=== PATIENT | male | born 1990 | race African-American/Black ===

== ENCOUNTER 2019-12-19 22:35 | Inpatient (IN) | payer MEDICAID ==
[~2019-12-19] VITALS: Ht 170.2 cm; Wt 63.5 kg
[2019-12-19 22:44] VITALS: BP 118/78
--- NOTE | 2019-12-19 22:44 | NUR ---
ED Nurse Note: ERMD at bedside. Pt LORE CO foreign object in rectm x 2 days and unable to remove object. Pt cannot state exactly what the object is. Pt states he recently did methamphetamines. VSS with elevated HR 134. ERMD aware. Pt aao x 4, steady gait. Pt states pain 9/10.
--- NOTE | 2019-12-19 22:46 | Emergency Room Report ---
History of Present Illness General Chief Complaint: Foreign Body Source: Patient, EMS Present Illness HPI Patient is a 29-year-old male presents after increased rectal discomfort. Patient states that he lost a object in his rectum. He states is been present for the past 2 days. He denies any vomiting. Reports having increased pain with Movement.Patient denies any fever. he denies any abdominal distention. He reports having some flatus. Denies any prior past medical history. Patient was brought in by EMS. Increased difficulty with ambulation due to discomfort. Object was described as an ornament. Allergies: Coded Allergies: SULFA (SULFONAMIDE ANTIBIOTICS) (Verified Allergy, Unknown, 12/20/19) COVID-19 Screening Contact w/high risk pt: No Recent Travel to affected area: No Experienced COVID-19 symptoms?: No Patient History Past Medical History: none Reviewed Nursing Documentation: PMH: Agreed; PSxH: Agreed Nursing Documentation-PMH History Of Psychiatric Problem: Yes Review of Systems All Other Systems: negative except mentioned in HPI Physical Exam Vital Signs Date Time Temp Pulse Resp B/P (MAP) Pulse Ox O2 Delivery O2 Flow Rate FiO2 12/19/19 22:38 98.1 134 18 118/78 (91) 96 Room Air Sp02 EP Interpretation: reviewed, normal General Appearance: normal inspection, well appearing, no apparent distress, alert, GCS 15 Head: atraumatic ENT: normal ENT inspection, hearing grossly normal, normal voice Neck: normal inspection, full range of motion, supple, no bony tend Respiratory: normal inspection, lungs clear, normal breath sounds, no respiratory distress, no retraction, no wheezing Cardiovascular #1: regular rate, rhythm, no edema Gastrointestinal: normal inspection, normal bowel sounds, non tender, soft, no guarding, no hernia Genitourinary: no CVA tenderness Musculoskeletal: normal inspection, back normal, normal range of motion Neurologic: alert, motor strength/tone normal, 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 Differential diagnosis include was not limited to foreign body, intestinal perforation, ischemia among others. Because of complexity of patient's case laboratory tests and imaging studies were ordered.KUB showed some radiopaque foreign body near the pubic ramus. CT was subsequently ordered which showed foreign body within the rectum. Patient was unable to tolerate exam at this time. May require exam and removal under anesthesia. Patient was noted to have foreign body for approximately [address] Nassar was contacted for surgical consult. Dr. Michael Villasenor was contacted for inpatient observation. Labs Test 12/19/19 23:30 White Blood Count 7.6 K/UL (4.8-10.8) Red Blood Count 5.55 M/UL (4.70-6.10) Hemoglobin 15.7 G/DL (14.2-18.0) Hematocrit 44.1 % (42.0-52.0) Mean Corpuscular Volume 79 FL (80-99) Mean Corpuscular Hemoglobin 28.3 PG (27.0-31.0) Mean Corpuscular Hemoglobin Concent 35.6 G/DL (32.0-36.0) Red Cell Distribution Width 11.5 % (11.6-14.8) Platelet Count 226 K/UL (150-450) Mean Platelet Volume 6.0 FL (6.5-10.1) Neutrophils (%) (Auto) 62.1 % (45.0-75.0) Lymphocytes (%) (Auto) 27.6 % (20.0-45.0) Monocytes (%) (Auto) 7.6 % (1.0-10.0) Eosinophils (%) (Auto) 1.7 % (0.0-3.0) Basophils (%) (Auto) 1.1 % (0.0-2.0) Prothrombin Time 10.4 SEC (9.30-11.50) Prothromb Time International Ratio 1.0 (0.9-1.1) Activated Partial Thromboplast Time 27 SEC (23-33) Sodium Level 141 MMOL/L (136-145) Potassium Level 4.0 MMOL/L (3.5-5.1) Chloride Level 101 MMOL/L (98-107) Carbon Dioxide Level 26 MMOL/L (21-32) Anion Gap 14 mmol/L (5-15) Blood Urea Nitrogen 14 mg/dL (7-18) Creatinine 1.1 MG/DL (0.55-1.30) Estimat Glomerular Filtration Rate > 60 mL/min (>60) Glucose Level 123 MG/DL (74-106) Calcium Level 9.5 MG/DL (8.5-10.1) Total Bilirubin 0.3 MG/DL (0.2-1.0) Aspartate Amino Transf (AST/SGOT) 25 U/L (15-37) Alanine Aminotransferase (ALT/SGPT) 25 U/L (12-78) Alkaline Phosphatase 100 U/L (46-116) Total Protein 8.3 G/DL (6.4-8.2) Albumin 4.2 G/DL (3.4-5.0) Globulin 4.1 g/dL Albumin/Globulin Ratio 1.0 (1.0-2.7) Last Vital Signs Date Time Temp Pulse Resp B/P (MAP) Pulse Ox O2 Delivery O2 Flow Rate FiO2 12/19/19 22:38 98.1 134 18 118/78 (91) 96 Room Air Status: improved Disposition: PLACE IN OBSERVATION Condition: Stable Jimmy Arriaga MD Dec 19, 2019 22:46
--- NOTE | 2019-12-19 22:48 | NUR ---
ED Nurse Note: xray ta bedside
[2019-12-19] MEDS ORDERED: Lidocaine HCl 2% Jelly 6ml Tube TOPIC ONE ×2 (23:04→23:15)
[2019-12-19] MEDS ORDERED: Omnipaque-300 100ml vial INJ PRN (23:30)
--- NOTE | 2019-12-19 23:32 | NUR ---
ED Nurse Note: all blood work drawn and sent to lab.
[2019-12-19 23:40] LABS: BASOPHILS % (AUTO) 1.1 % (0.0-2.0); EOSINOPHILS % (AUTO) 1.7 % (0.0-3.0); HEMATOCRIT 44.1 % (42.0-52.0); HEMOGLOBIN 15.7 G/DL (14.2-18.0); LYMPHOCYTES % (AUTO) 27.6 % (20.0-45.0); MEAN CORPUSCULAR VOLUME 79 FL (80-99); MONOCYTES % (AUTO) 7.6 % (1.0-10.0); NEUTROPHILS % (AUTO) 62.1 % (45.0-75.0); PLATELET COUNT 226 K/UL (150-450); RED BLOOD COUNT 5.55 M/UL (4.70-6.10); RED CELL DISTRIBUTION WIDTH 11.5 % (11.6-14.8); WHITE BLOOD COUNT 7.6 K/UL (4.8-10.8)
[2019-12-19 23:50] LABS: ANION GAP 14 mmol/L (5-15); BLOOD UREA NITROGEN 14 mg/dL (7-18); CALCIUM 9.5 MG/DL (8.5-10.1); CARBON DIOXIDE 26 MMOL/L (21-32); CHLORIDE 101 MMOL/L (98-107); CREATININE 1.1 MG/DL (0.55-1.30); SODIUM 141 MMOL/L (136-145)
[2019-12-19 23:55] LABS: ALANINE AMINOTRANSFERASE 25 U/L (12-78); ALBUMIN 4.2 G/DL (3.4-5.0); ALKALINE PHOSPHATASE 100 U/L (46-116); ASPARTATE AMINO TRANSFERASE 25 U/L (15-37); BILIRUBIN,TOTAL 0.3 MG/DL (0.2-1.0)
--- NOTE | 2019-12-19 23:55 | NUR ---
ED Nurse Note: Pt taken to CT in stable condition. VSS, aao x 4. no ss of distress noted.
[2019-12-20] VITALS (22 sets, daily range): BP systolic 111–166; BP diastolic 44–82
--- NOTE | 2019-12-20 00:39 | NUR ---
ED Nurse Note: pt returned from CT in stable condition, no ss of distress noted. no adverse reactions noted. pt resting in room
--- NOTE | 2019-12-20 01:00 | Diagnostic Imaging Report ---
INDICATION: Abdominal pain TECHNIQUE: Continuous helical transaxial imaging of the abdomen and pelvis was obtained from the lung bases to the pubic symphysis during intravenous contrast administration. Coronal 2-D reformats were also obtained. Study obtained in a Siemens sensation [address] Automatic Exposure Control was utilized. Total Dose length Product (DLP): 217.[address] Dose Index Volume (CTDIvol): 4 mGy COMPARISON: None FINDINGS: Lungs: Not fully visualized.. Liver: Not fully visualized without much of the upper part of the liver beyond the [id number] of this examination. Gallbladder/biliary system: No gallstones are identified. There is no evidence of intrahepatic or extrahepatic biliary ductal dilatation. Spleen: Incompletely visualized. Grossly unremarkable. Pancreas: Unremarkable Kidneys/Bladder: No hydronephrosis identified. Both kidneys enhance symmetrically. The urinary bladder is unremarkable.. Adrenal glands: Unremarkable Aorta/IVC: Unremarkable Bowel: The appendix is seen. Appendix appears normal. There is no small bowel dilatation. There is a rectal foreign body present with a moderate amount of fecal retention in the rectosigmoid colon. There is no free air. Peritoneum: There is no free fluid. Bones: Unremarkable IMPRESSION: Rectal foreign body noted. Moderate fecal retention. No free air. The CT scanner at [facility] is accredited by the [employer] and the scans are performed using dose optimization techniques as appropriate to a performed exam including Automatic Exposure control.
--- NOTE | 2019-12-20 01:07 | NUR ---
ED Nurse Note: ERMD at bedside
[2019-12-20] MEDS ORDERED: Morphine Sulfate 4mg/ml Inj (IV USE ONLY) IVP ONE (01:15)
[2019-12-20] MEDS ORDERED: D5 1/2NS 1,000 ML IV SCH (01:15)
--- NOTE | 2019-12-20 01:15 | NUR ---
ED Nurse Note: IV fluids running. Pt tolerating well. no ss of distress noted. no adverse reactions noted.
--- NOTE | 2019-12-20 01:49 | NUR ---
NURSE NOTES: Received telephone report from MART Millard (ED).
--- NOTE | 2019-12-20 01:49 | NUR ---
ED Nurse Note: Report given to MART Mckinney.
--- NOTE | 2019-12-20 01:55 | NUR ---
ER DISCHARGE NOTE: Patient is cleared to be discharged to [facility] floor per ERMD, pt is aox4, on room air, with stable vital signs. pt was given dc instructions, pt was able to verbalize understanding. pt is able to ambulate with steady gait. pt took all belongings. Report given to MART Mckinney.
--- NOTE | 2019-12-20 02:00 | NUR ---
NURSE NOTES: Received pt from MART Zapata via [facility]. Pt able to ambulate. Pt a&ox4, in room air. No s/s of acute distress, c/o 7/10 pain. No skin issues. IV site intact & S/L'd. Oriented to hospital facility. Pt belongings signed & accounted for. All questions answered. Will call Dr. Villasenor for admission orders. Plan of care discussed.
--- NOTE | 2019-12-20 02:47 | NUR ---
NURSE NOTES: MRSA & VRE/CRE swabs collected. Sent down to lab.
[2019-12-20] MEDS ORDERED: Morphine Sulfate 2mg/ml Inj(IV/IM USE ONLY) IVP PRN (06:45)
[2019-12-20] MEDS: Morphine Sulfate 4mg/ml Inj (IV USE ONLY) IVP PRN ×2 (06:57→11:09)
--- NOTE | 2019-12-20 07:06 | NUR ---
HAND-OFF: Report given to MART Gill. Pt in stable condition. Pt given Morphine 4mg IVP for pain.
--- NOTE | 2019-12-20 07:34 | NUR ---
NURSE NOTES: PT AXOX4, CALM, RESTING IN BED. PT STATES PAIN IN RECTUM 6-7/10 AT THIS TIME, WORSE WITH MOVEMENT. PT STATES HE DOES NOT KNOW WHAT IS INSIDE AND STATES "PLEASE STOP ASKING ME WHAT'S INSIDE. I DON'T KNOW." IN NO APPARENT DISTRESS AT THIS TIME. VSS. PT EDUCATED TO USE CALL LIGHT FOR ANY ASSISTANCE. CALL LIGHT WITHIN REACH. BED IN LOWEST POSITION WITH BEDSIDE RAILS X2 RAISED. WILL CONTINUE TO MONITOR.
--- NOTE | 2019-12-20 08:07 | NUR ---
NURSE NOTES: PT EDUCATED ON SCDs, AND PT VERBALIZED UNDERSTANDING. RN APPLIED SCDs ORDERED.
--- NOTE | 2019-12-20 11:01 | Pre-Procedure Note/Attestation ---
Pre-Procedure Note/Attestation Complete Prior to Procedure Procedure Narrative: examination under anesthesia, removal of rectal foreign body, possible exploratory laparotomy, possible bowel resection Indications for Procedure Pre-Operative Diagnosis: rectal foreign body Attestation I attest that I discussed the nature of the procedure; its benefits; risks and complications; and alternatives (and the risks and benefits of such alternatives ), prior to the procedure, with the patient (or the patient's legal floor representative). I attest that, if there was a reasonable possibility of needing a blood transfusion, the patient (or the patient's legal floor representative) was given the [facility] standardized written summary, pursuant to the [place] Blood Safety Act ([place] Health and Safety Code # 1645, as amended). I attest that I re-evaluated the patient just prior to the surgery and that there has been no change in the patient's H&P, except as documented below: Ab Nassar Dec 20, 2019 11:01
--- NOTE | 2019-12-20 11:15 | Consultation ---
History of Present Illness General Date patient seen: Dec 20, 2019 Reason for Hospitalization: Foreign Body Present Illness HPI Patient is a 29-year-old male presents after increased rectal discomfort. Patient states that he lost a object in his rectum. He states is been present for the past 2 days. He denies any vomiting. Reports having increased pain with Movement.Patient denies any fever. he denies any abdominal distention. He reports having some flatus. Denies any prior past medical history. Patient was brought in by EMS. Increased difficulty with ambulation due to discomfort. Object was described as an ornament. surgery called to evaluate. patient seen, chart reviewed, patient examined. no abd pain. rectal pain continues. believed he would pass object but still no after 3 days now Allergies: Coded Allergies: SULFA (SULFONAMIDE ANTIBIOTICS) (Verified Allergy, Unknown, 12/20/19) COVID-19 Screening Contact w/high risk pt: No Recent Travel to affected area: No Experienced COVID-19 symptoms?: No Patient History History Provided By: Patient Healthcare decision maker Resuscitation status Full Code Advanced Directive on File Past Medical/Surgical History Past Medical/Surgical History: (1) Rectal foreign body Review of Systems Review of Symptoms General ROS: no weight loss or fever Psychological ROS: no depression or mood changes, no memory loss Ophthalmic ROS: no visual changes or eye irritation ENT ROS: no nasal congestion, hearing loss, dizziness Allergy and Immunology ROS: no allergic symptoms or urticaria Hematological and Lymphatic ROS: no swollen glands, unusual bleeding or bruising Endocrine ROS: no polyuria, polydipsia, weight changes, temperature intolerance Respiratory ROS: no cough, shortness of breath, or wheezing Cardiovascular ROS: no chest pain or dyspnea on exertion Gastrointestinal ROS: denies abdominal pain, bright red blood in stool. Musculoskeletal ROS: no myalgias or arthralgias Neurological ROS: no TIA or stroke symptoms Dermatological ROS: no new or changing skin lesions, rashes or pruritis Physical Exam Physical Exam General appearance: alert, cooperative, no distress, appears stated age Head: Normocephalic, without obvious abnormality, atraumatic Eyes: conjunctivae/corneas clear. PERRL, EOM's intact. Fundi benign Throat: Lips, mucosa, and tongue normal. Teeth and gums normal Neck: supple, symmetrical, trachea midline, no adenopathy, thyroid: not enlarged, symmetric, no tenderness/mass/nodules, no carotid bruit and no JVD Lungs: clear to auscultation bilaterally Heart: regular rate and rhythm, S1, S2 normal, no murmur, click, rub or gallop Abdomen: soft, non-tender. Bowel sounds normal. No masses, no organomegaly Extremities: extremities normal, atraumatic, no cyanosis or edema Pulses: 2+ and symmetric Skin: Skin color, texture, turgor normal. No rashes or lesions Neurologic: Grossly normal rectal deferred for OR given pain Last 24 Hour Vital Signs Date Time Temp Pulse Resp B/P (MAP) Pulse Ox O2 Delivery O2 Flow Rate FiO2 12/20/19 08:44 Room Air 12/20/19 07:31 97.9 80 16 143/82 (102) 98 12/20/19 04:00 97.4 71 16 124/75 (91) 99 12/20/19 02:31 Room Air 12/20/19 02:00 98.0 92 16 136/66 (89) 98 12/20/19 01:55 98.1 92 16 132/76 96 Room Air 12/20/19 01:45 98.1 12/20/19 01:42 98.1 92 16 132/76 96 Room Air 12/20/19 00:47 98.1 116 18 120/75 96 Room Air 12/19/19 22:44 98.1 134 18 118/78 96 Room Air 12/19/19 22:38 98.1 134 18 118/78 (91) 96 Room Air Intake and Output 12/19/19 12/20/19 19:00 07:00 Intake Total 0 ml Balance 0 ml Intake Oral 0 ml # Voids 1 Laboratory Tests Test 12/19/19 23:30 White Blood Count 7.6 K/UL (4.8-10.8) Red Blood Count 5.55 M/UL (4.70-6.10) Hemoglobin 15.7 G/DL (14.2-18.0) Hematocrit 44.1 % (42.0-52.0) Mean Corpuscular Volume 79 FL (80-99) L Mean Corpuscular Hemoglobin 28.3 PG (27.0-31.0) Mean Corpuscular Hemoglobin Concent 35.6 G/DL (32.0-36.0) Red Cell Distribution Width 11.5 % (11.6-14.8) L Platelet Count 226 K/UL (150-450) Mean Platelet Volume 6.0 FL (6.5-10.1) L Neutrophils (%) (Auto) 62.1 % (45.0-75.0) Lymphocytes (%) (Auto) 27.6 % (20.0-45.0) Monocytes (%) (Auto) 7.6 % (1.0-10.0) Eosinophils (%) (Auto) 1.7 % (0.0-3.0) Basophils (%) (Auto) 1.1 % (0.0-2.0) Prothrombin Time 10.4 SEC (9.30-11.50) Prothromb Time International Ratio 1.0 (0.9-1.1) Activated Partial Thromboplast Time 27 SEC (23-33) Sodium Level 141 MMOL/L (136-145) Potassium Level 4.0 MMOL/L (3.5-5.1) Chloride Level 101 MMOL/L (98-107) Carbon Dioxide Level 26 MMOL/L (21-32) Anion Gap 14 mmol/L (5-15) Blood Urea Nitrogen 14 mg/dL (7-18) Creatinine 1.1 MG/DL (0.55-1.30) Estimat Glomerular Filtration Rate > 60 mL/min (>60) Glucose Level 123 MG/DL (74-106) H Calcium Level 9.5 MG/DL (8.5-10.1) Total Bilirubin 0.3 MG/DL (0.2-1.0) Aspartate Amino Transf (AST/SGOT) 25 U/L (15-37) Alanine Aminotransferase (ALT/SGPT) 25 U/L (12-78) Alkaline Phosphatase 100 U/L (46-116) Total Protein 8.3 G/DL (6.4-8.2) H Albumin 4.2 G/DL (3.4-5.0) Globulin 4.1 g/dL Albumin/Globulin Ratio 1.0 (1.0-2.7) Microbiology Date/Time Source Procedure Growth Status 12/20/19 02:30 Rectal Mucosa Received Height (Feet): 5 Height (Inches): 7.00 Weight (Pounds): 140 Medications Current Medications Medications (Trade) Dose Ordered Sig/Grzegorz Route PRN Reason Start Time Stop Time Status Last Admin Dose Admin Barium Sulfate (Readi-Cat 2) 450 ml NOW PRN ORAL Radiology Procedure 12/19/19 23:30 12/21/19 23:25 Iohexol (OMNIPAQUE-300 100ml) 100 ml NOW PRN INJ Radiology Procedure 12/19/19 23:30 12/21/19 23:25 Morphine Sulfate (Morphine Sulfate) 2 mg Q3H PRN IVP Mild Pain (Pain Scale 1-3) 12/20/19 06:45 12/27/19 06:44 Morphine Sulfate (Morphine Sulfate) 4 mg Q3H PRN IVP PAIN 4-10 12/20/19 06:45 12/27/19 06:44 12/20/19 11:09 Ondansetron HCl (Zofran) 4 mg Q6H PRN IVP Nausea & Vomiting 12/20/19 06:45 01/19/20 06:44 Sodium Chloride 1,000 ml @ 100 mls/hr Q10H IV 12/20/19 06:45 01/19/20 06:44 12/20/19 06:51 Assessment/Plan Problem List: (1) Rectal foreign body Assessment & Plan: unable to remove at bedside given item, ct findings, location, and patient comfort will need to go to OR for removal of rectal FB discussed with patient in detail npo iv fluids pre op consent to OR for removal today thank you ICD Codes: T18.5XXA - Foreign body in anus and rectum, initial encounter SNOMED: [id number] Ab Nassar Dec 20, 2019 11:15
--- NOTE | 2019-12-20 11:18 | NUR ---
NURSE NOTES: DR RAMIREZ AT BEDSIDE. RN RECEIVED ORDER TO OBTAIN CONSENT. PT SIGNED CONSENT FORM AND RN PLACED IN CHART.
--- NOTE | 2019-12-20 12:10 | NUR ---
CASE MANAGEMENT:INITIAL REVIEW 29YR OLD MALE BIBA FROM STREET CC: FOREIGN BODY IN RECTUM SI:RECTAL FOREIGN BODY 98.1 134 18 118/78 96% ON RA BG 123 IS:LIDOCAINE TP X1 ABD/PEL CT - Rectal foreign body noted. \: 3E MED SURG UNIT PLAN: SURGERY CONSULT CASE MANAGEMENT: REVIEW 12/20/19 SI:RECTAL FOREIGN BODY 98.5 81 18 127/72 98% ON RA IS:IV NS@100ML/HR IV MORPHINE SULFATE Q3HR/PRN \: 3E MED SURG UNIT PLAN: REMOVAL OF FB; POSSIBLE EXPL LAP, POSS BOWEL RESECTION
--- NOTE | 2019-12-20 12:15 | History and Physical Report ---
DATE OF ADMISSION: 12/19/2019 REASON FOR ADMISSION: Foreign body in rectum. HISTORY: This is a 29-year-old male, notes that he has lost an object in his rectum, had been present there for approximately two days and has been unable to evacuate it. The patient denies any abdominal pain, but notes rectal pain. Denies any prior medical history. The patient describes this object as an ornament. PAST MEDICAL HISTORY: Essentially negative. MEDICATIONS: Reviewed and reconciled. ALLERGIES: To sulfa. REVIEW OF SYSTEMS: Otherwise negative. FAMILY HISTORY: Otherwise noncontributory due to the above. PHYSICAL EXAMINATION: GENERAL: Well-developed male. VITAL SIGNS: Reviewed, blood pressure 136/66, pulse 92, respirations 16, sats 98%, temperature 98. HEENT: Negative. NECK: Supple. LUNGS: Clear. CARDIAC: S1, S2. Regular rate and rhythm. ABDOMEN: Soft, nontender. EXTREMITIES: No edema. LABORATORY DATA: Lab data reviewed, overall fairly negative. CT notable for radiopaque foreign body. IMPRESSION: Foreign body in rectum, rectal pain. RECOMMENDATIONS: Surgical evaluation for removal. Pain control, antiemetics, NPO for now and admit to observation. Discharge once cleared by Surgery. Michael Villasenor M.D. DR: JOSELUIS JOB#: [id number] CC:
--- NOTE | 2019-12-20 13:02 | NUR ---
NURSE NOTES: PT OFF UNIT.
--- NOTE | 2019-12-20 13:09 | Diagnostic Imaging Report ---
Indication: Abdominal pain Comparison: None Single view of the abdomen obtained Findings: Radiopaque metallic foreign body demonstrated within the area of the rectum. This was initially noted on prior CT. Bowel gas pattern is nonobstructive. There is no free air identified on the single view of the abdomen. Bones are unremarkable. IMPRESSION: Rectal foreign body
[2019-12-20] MEDS ORDERED: NS Irrig 1000ml ONE (13:30)
[2019-12-20] MEDS ORDERED: LR 1000ml ONE (13:30)
[2019-12-20] MEDS ORDERED: Propofol 200mg/20ml IV ONE (13:37)
[2019-12-20] MEDS ORDERED: Lidocaine 1% MPF 10mg/ml 5ml ONE (13:37)
[2019-12-20] MEDS ORDERED: Sodium Chloride 10ml vial INJ ONE (13:37)
[2019-12-20] MEDS ORDERED: Dexamethasone 4mg/ml vial ONE (13:37)
[2019-12-20] MEDS ORDERED: fentaNYL 100 mcg/2 mL IV ONE (13:38)
[2019-12-20] MEDS ORDERED: LR 1000ml 1,000 ML IVLG SCH (13:39)
[2019-12-20] MEDS ORDERED: Hydromorphone 0.5mg/0.5ml inj IVP PRN (13:45)
[2019-12-20] MEDS ORDERED: Midazolam 2mg/2ml Inj IVP PRN (13:45)
[2019-12-20] MEDS ORDERED: Ketorolac 30mg Inj IV PRN ×2 (13:45)
[2019-12-20] MEDS ORDERED: Metoclopramide 10mg/2ml Inj IVP PRN (13:45)
[2019-12-20] MEDS ORDERED: HYDROcodone/Acetamin 5/325 tab ORAL PRN (13:45)
[2019-12-20] MEDS ORDERED: Atropine Sulfate 0.4mg/ml inj IVP PRN (13:45)
[2019-12-20] MEDS ORDERED: DiphenhydrAMINE 50mg/ml Inj IVP PRN (13:45)
[2019-12-20] MEDS ORDERED: Meperidine 25mg/0.5ml Inj (FOR RIGORS ONLY) IV PRN (13:45)
[2019-12-20] MEDS ORDERED: fentaNYL 100 mcg/2 mL IV PRN (13:45)
[2019-12-20] MEDS ORDERED: LORazepam Inj 2mg/ml 1ml IV PRN (13:45)
[2019-12-20] MEDS ORDERED: oxyCODONE HCL/Acetaminophen 5/325mg ORAL PRN (13:45)
[2019-12-20] MEDS ORDERED: Labetalol 5mg/ml 20ml vial IV PRN (13:45)
[2019-12-20] MEDS ORDERED: HYDROcodone/Acetamin 7.5/325 tab ORAL PRN (13:45)
--- NOTE | 2019-12-20 13:47 | Anethesia Preoperative Eval ---
Anesthesia Pre-op PMH/ROS General Date of Evaluation: Dec 20, 2019 Time of Evaluation: 13:42 Anesthesiologist: Brad ASA Score: ASA 2 Mallampati Score Class I : Soft palate, uvula, fauces, pillars visible Class II: Soft palate, uvula, fauces visible Class III: Soft palate, base of uvula visible Class IV: Only hard plate visible Mallampati Classification: Class II Surgeon: Maady Diagnosis: Foreign Body In Rectum Surgical Procedure: Remove Foreign Body In Rectum Anesthesia History: none Social History: current smoker Family History: no anesthesia problems Allergies: Coded Allergies: SULFA (SULFONAMIDE ANTIBIOTICS) (Verified Allergy, Unknown, 12/20/19) Medications: see eMAR Patient NPO?: Yes NPO Date: Dec 20, 2019 NPO Time: 0000 Anesthesia Pre-op Phys. Exam Physician Exam Last Vital Signs Date Time Temp Pulse Resp B/P (MAP) Pulse Ox O2 Delivery O2 Flow Rate FiO2 12/20/19 11:15 98.5 81 18 127/72 (90) 98 12/20/19 08:44 Room Air Constitutional: NAD Neurologic: CN 2-12 intact Cardiovascular: RRR Respiratory: CTA Gastrointestinal: S/NT/ND Airway Exam Mallampati Score: Class II MO: full ROM: full Teeth: intact Anesthesia Pre-op A/P Labs Hematology Test 12/19/19 23:30 White Blood Count 7.6 K/UL (4.8-10.8) Red Blood Count 5.55 M/UL (4.70-6.10) Hemoglobin 15.7 G/DL (14.2-18.0) Hematocrit 44.1 % (42.0-52.0) Mean Corpuscular Volume 79 FL (80-99) L Mean Corpuscular Hemoglobin 28.3 PG (27.0-31.0) Mean Corpuscular Hemoglobin Concent 35.6 G/DL (32.0-36.0) Red Cell Distribution Width 11.5 % (11.6-14.8) L Platelet Count 226 K/UL (150-450) Mean Platelet Volume 6.0 FL (6.5-10.1) L Neutrophils (%) (Auto) 62.1 % (45.0-75.0) Lymphocytes (%) (Auto) 27.6 % (20.0-45.0) Monocytes (%) (Auto) 7.6 % (1.0-10.0) Eosinophils (%) (Auto) 1.7 % (0.0-3.0) Basophils (%) (Auto) 1.1 % (0.0-2.0) Coagulation Test 12/19/19 23:30 Prothrombin Time 10.4 SEC (9.30-11.50) Prothromb Time International Ratio 1.0 (0.9-1.1) Activated Partial Thromboplast Time 27 SEC (23-33) Chemistry Test 12/19/19 23:30 Sodium Level 141 MMOL/L (136-145) Potassium Level 4.0 MMOL/L (3.5-5.1) Chloride Level 101 MMOL/L (98-107) Carbon Dioxide Level 26 MMOL/L (21-32) Anion Gap 14 mmol/L (5-15) Blood Urea Nitrogen 14 mg/dL (7-18) Creatinine 1.1 MG/DL (0.55-1.30) Estimat Glomerular Filtration Rate > 60 mL/min (>60) Glucose Level 123 MG/DL (74-106) H Calcium Level 9.5 MG/DL (8.5-10.1) Total Bilirubin 0.3 MG/DL (0.2-1.0) Aspartate Amino Transf (AST/SGOT) 25 U/L (15-37) Alanine Aminotransferase (ALT/SGPT) 25 U/L (12-78) Alkaline Phosphatase 100 U/L (46-116) Total Protein 8.3 G/DL (6.4-8.2) H Albumin 4.2 G/DL (3.4-5.0) Globulin 4.1 g/dL Albumin/Globulin Ratio 1.0 (1.0-2.7) Risk Assessment & Plan Assessment: ASA 2 Plan: GA, SED Status Change Before Surgery: No Pre-Antibiotics Dru Gram Ancef IV Given Within 1 Hr of Incision: Yes Time Given: 13:51 Michel Salinas MD Dec 20, 2019 13:47
--- NOTE | 2019-12-20 13:48 | Immediate Post-Op Evaluation ---
Immediate Post-Op Evalulation Immediate Post-Op Evalulation Procedure: Remove Foreign Body In Rectum Date of Evaluation: Dec 20, 2019 Time of Evaluation: 14:39 IV Fluids: 500 LR Blood Products: 0 Estimated Blood Loss: 5 Urinary Output: 0 Blood Pressure Systolic: 111 Blood Pressure Diastolic: 64 Pulse Rate: 84 Respiratory Rate: 16 O2 Sat by Pulse Oximetry: 100 Temperature (Fahrenheit): 97.3 Pain Score (1-10): 2 Nausea: No Vomiting: No Complications 0 Patient Status: awake, reacts, patent, none Hydration Status: adequate Dru Gram Ancef IV Given Within 1 Hr of Incision: Yes Time Given: 13:51 Michel Salinas MD Dec 20, 2019 13:48
--- NOTE | 2019-12-20 14:09 | NUR ---
NOZZLE OPERATOR NOTE Pt was off unit when SW attempted to meet w/ pt. SW will assess pt when pt returns.
--- NOTE | 2019-12-20 14:38 | Brief Operative Note ---
Immediate Post Operative Note Operative Note Pre-op Diagnosis: rectal foreign body Procedure: examination under anesthesia removal of rectal foreign body rigid sigmoidoscopy Post-op Diagnosis: same as pre-op Surgeon: miguel Anesthesiologist: esmer Anesthesia: general Specimen: yes Complications: none Condition: stable Fluids: see records Estimated Blood Loss: none Drains: none Implant(s) used?: No Ab Nassar Dec 20, 2019 14:38
--- NOTE | 2019-12-20 15:39 | NUR ---
NURSE NOTES: RECEIVED PT FROM PACU FROM MART SPARROW. PT IN STABLE CONDITION. VSS. PT IS ON 2L NC. DENIES PAIN OR N/V AT THIS TIME. BED IN LOWEST POSITION WITH BEDSIDE RAILS X2 RAISED. BED ALARM ON ZONE 1. IN NO APPARENT DISTRESS AT THIS TIME. RESUMED NS AT 75CC/HR. IN SEMI-STOLL'S POSITION. WILL CONTINUE TO MONITOR.
--- NOTE | 2019-12-20 16:30 | Operative Note - Dictated ---
DATE OF OPERATION: 12/20/2019 PREOPERATIVE DIAGNOSIS: Rectal foreign body. POSTOPERATIVE DIAGNOSIS: Rectal foreign body. OPERATION PERFORMED: 1. Examination under anesthesia. 2. Removal of rectal foreign body. 3. Rigid sigmoidoscopy. ATTENDING SURGEON: Ab Nassar M.D. MATERIALS ASSISTANT: None. ANESTHESIOLOGIST: Michel Salinas M.D. ANESTHESIA: General PHYSIATRIST. ESTIMATED BLOOD LOSS: Minimal. IV FLUIDS: Please see anesthesiologist record. COMPLICATIONS: None. DRAINS: None. COUNTS: Sponge and needle count correct x2. WOUND CLASSIFICATION: Class 4. ANTIBIOTICS: 1 g of Ancef IV. INDICATIONS FOR PROCEDURE: This is a homeless 29-year-old male who was under the influence of "dope" and inserted what he believes to be a ornament into his rectum and was able to retrieve it. He left in there for two days assuming it would pass and unfortunately did not and therefore came to the emergency room for evaluation at which time was seen and identified to have a metallic object in his rectum with concerns for removal and requiring surgical evaluation. Given the patient's general overall mental status and mood were not applicable to bedside removal and discussing the above findings and care plan with the patient, decision was made to proceed to the operating room for evaluation and removal, especially given it was a foreign object that was metallic and the patient states potentially sharp and he would injure his fingers in trying to attempt removal given the sharp metallic point at the distal end. Surgery was indicated and recommended. Consent was obtained from the patient after risks, benefits, and alternatives discussed. We discussed potential for exploration, ostomy, bowel resection and rectal injury. The patient expressed understanding. OPERATIVE NOTE: The patient was taken to the operating room and placed on the operating table on supine position with bilateral arms out. All bony prominences were well padded. SCDs placed. Preoperative time-out was taken to identify the patient, procedure, operative staff and surgical staff. General anesthesia was induced and LMA was placed. The patient was then placed in stirrups in lithotomy position. The rectum was prepped and draped in standard surgical fashion. With strict care, a very gentle rectal examination was done and the foreign object was evaluated, noted to be metallic and rectal dilator was placed and the object was clearly identified. The object was grasped and slowly withdrawn ensuring great care not to injure the rectal vault. Once withdrawn in total, object was appeared to be intact and similar description of what the patient has identified. A rigid stick was performed and no bleeding or rectal injury was identified. The rectal vault was full of stool, but limited examination in total. At this time, we began the conclusion of the procedure. The patient was placed in the supine position, extubated, and taken to postanesthesia care unit in stable condition. SPECIMENS: Sent to pathology. Ab Nassar M.D. DR: GERALDINE JOB#: [id number] CC:
--- NOTE | 2019-12-20 19:30 | NUR ---
NURSE NOTES: Received report from MART Gonzalez. Pt is awake, lying semi-ron's; comfortably resting. No signs of acute distress noted. Pt denies any pain at this time. AOx4; able to make needs known. Checked IV site, line, and rate; patent and running. No erythema, bleeding or infiltration noted. Bed at lowest position. Brakes on. Siderails up x2. Call light within reach. Will continue to monitor.
--- NOTE | 2019-12-20 19:37 | NUR ---
HAND-OFF: Report given to Parisa STODDARD RN.
[2019-12-21] VITALS: BP 111/60
[2019-12-21 04:00] VITALS: BP 133/70
--- NOTE | 2019-12-21 07:46 | NUR ---
NURSE NOTES: Received report from MART Alvarenga. patient in bed, A&Ox4, verbally responsive. no respiratory distress noted. no pain at this time. IV on RAC20g running NS@100/hr. skin intact. s/p removal rectal foreign object. no bleeding noted. bed in the lowest position and locked. call light within reach. will continue to provide plan of care.
--- NOTE | 2019-12-21 07:47 | NUR ---
HAND-OFF: Report given to MART Cornejo. Pt is awake and in stable condition. Plan of care endorsed.
[2019-12-21 08:00] VITALS: BP 116/53
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
--- NOTE | 2019-12-21 09:30 | NUR ---
NURSE NOTES: SEEN BY Dr. Villasenor. patient ok to dc if cleared by surgery Dr. Nassar.
--- NOTE | 2019-12-21 09:30 | NUR ---
NURSE NOTES: patient c/o pain on IV site. removed IV. patient refused to get a new IV. notified Dr. Villasenor. is aware.
--- NOTE | 2019-12-21 11:05 | NUR ---
CASE MANAGEMENT: REVIEW 12/21/19 SI:S/P REMOVAL OF FB . S/P RIGID SIGMOIDOSCOPY 98.6 93 20 116/53 98% ON RA IS:IV NS@100ML/HR IV MORPHINE SULFATE Q3HR/PRN \: 3E MED SURG UNIT PLAN: CONTINUE IVF CONTROL PAIN
[2019-12-21 12:00] VITALS: BP 110/67
--- NOTE | 2019-12-21 12:34 | General Progress Note ---
Assessment/Plan Assessment/Plan: foreign body rectum s/p removal PLAN dc home dc instruction per surgery impression, plan, and exam edited and reviewed in detail care discussed with RN Subjective Allergies: Coded Allergies: SULFA (SULFONAMIDE ANTIBIOTICS) (Verified Allergy, Unknown, 12/20/19) Subjective care noted overall improved post op and stable Objective Last 24 Hour Vital Signs Date Time Temp Pulse Resp B/P (MAP) Pulse Ox O2 Delivery O2 Flow Rate FiO2 12/21/19 12:00 97.5 89 18 110/67 (81) 99 12/21/19 09:00 Room Air 12/21/19 08:00 98.6 93 20 116/53 (74) 98 12/21/19 04:00 98.0 71 20 133/70 (91) 98 12/21/19 00:00 97.7 69 18 111/60 (77) 98 12/20/19 21:00 Room Air 12/20/19 20:00 97.9 77 20 112/75 (87) 96 12/20/19 18:50 97.6 80 17 120/71 (87) 98 12/20/19 17:45 97.5 90 16 122/74 (90) 99 12/20/19 17:10 98.5 83 17 120/71 (87) 98 12/20/19 16:15 97.5 81 17 115/72 (86) 99 12/20/19 16:00 97.6 72 16 116/57 (76) 99 12/20/19 15:46 97.5 72 18 120/60 (80) 99 12/20/19 15:25 97.4 82 16 115/68 (84) 100 12/20/19 15:17 98.1 12/20/19 15:17 98.1 12/20/19 15:15 98.1 74 13 112/50 100 Nasal Cannula 3 12/20/19 15:00 74 15 118/58 98 Nasal Cannula 3 12/20/19 14:48 80 19 114/53 100 Simple Mask 6 12/20/19 14:39 81 22 111/50 100 Simple Mask 6 12/20/19 14:29 80 19 111/49 99 Simple Mask 6 12/20/19 14:24 83 19 113/47 99 Simple Mask 6 12/20/19 14:21 84 16 100 12/20/19 14:19 98.2 83 22 111/44 99 Simple Mask 6 Intake and Output 12/20/19 12/21/19 19:00 07:00 Intake Total 2160 ml Output Total 5 ml Balance 2155 ml Intake Oral 360 ml IV Total 1800 ml Estimated Blood Loss 5 ml Laboratory Tests 12/20/19 19:00: Urine Opiates Screen PositiveH, Urine Barbiturates Screen Negative, Phencyclidine (PCP) Screen Negative, Urine Amphetamines Screen PositiveH, Urine Benzodiazepines Screen PositiveH, Urine Cocaine Screen Negative, Urine Marijuana (THC) Screen PositiveH Height (Feet): 5 Height (Inches): 7.00 Weight (Pounds): 140 Objective WDWN NAD clear breath sounds bilaterally without rhonchi or wheeze [id number] without MRG NABS nontender no HSM no CCE nonfocal Michael Villasenor MD Dec 21, 2019 12:34
--- NOTE | 2019-12-21 13:02 | Surgery Progress Note ---
Surgery Progress Note Subjective Procedure Performed examination under anesthesia removal of rectal foreign body rigid sigmoidoscopy Symptoms: improved Objective Last 24 Hour Vital Signs Date Time Temp Pulse Resp B/P (MAP) Pulse Ox O2 Delivery O2 Flow Rate FiO2 12/21/19 12:00 97.5 89 18 110/67 (81) 99 12/21/19 09:00 Room Air 12/21/19 08:00 98.6 93 20 116/53 (74) 98 12/21/19 04:00 98.0 71 20 133/70 (91) 98 12/21/19 00:00 97.7 69 18 111/60 (77) 98 12/20/19 21:00 Room Air 12/20/19 20:00 97.9 77 20 112/75 (87) 96 12/20/19 18:50 97.6 80 17 120/71 (87) 98 12/20/19 17:45 97.5 90 16 122/74 (90) 99 12/20/19 17:10 98.5 83 17 120/71 (87) 98 12/20/19 16:15 97.5 81 17 115/72 (86) 99 12/20/19 16:00 97.6 72 16 116/57 (76) 99 12/20/19 15:46 97.5 72 18 120/60 (80) 99 12/20/19 15:25 97.4 82 16 115/68 (84) 100 12/20/19 15:17 98.1 12/20/19 15:17 98.1 12/20/19 15:15 98.1 74 13 112/50 100 Nasal Cannula 3 12/20/19 15:00 74 15 118/58 98 Nasal Cannula 3 12/20/19 14:48 80 19 114/53 100 Simple Mask 6 12/20/19 14:39 81 22 111/50 100 Simple Mask 6 12/20/19 14:29 80 19 111/49 99 Simple Mask 6 12/20/19 14:24 83 19 113/47 99 Simple Mask 6 12/20/19 14:21 84 16 100 12/20/19 14:19 98.2 83 22 111/44 99 Simple Mask 6 I&O Intake and Output 12/20/19 12/21/19 19:00 07:00 Intake Total 2160 ml Output Total 5 ml Balance 2155 ml Intake Oral 360 ml IV Total 1800 ml Estimated Blood Loss 5 ml Cardiovascular: RSR Abdomen: soft, non-tender, present bowel sounds Extremities: no edema, no tenderness Laboratory Tests Test 12/20/19 19:00 Urine Opiates Screen Positive (NEGATIVE) H Urine Barbiturates Screen Negative (NEGATIVE) Phencyclidine (PCP) Screen Negative (NEGATIVE) Urine Amphetamines Screen Positive (NEGATIVE) H Urine Benzodiazepines Screen Positive (NEGATIVE) H Urine Cocaine Screen Negative (NEGATIVE) Urine Marijuana (THC) Screen Positive (NEGATIVE) H Plan Problems: (1) Rectal foreign body Assessment & Plan: unable to remove at bedside given item, ct findings, location, and patient comfort will need to go to OR for removal of rectal FB discussed with patient in detail npo iv fluids pre op consent to OR for removal today thank you s/p removal d/c home Ab Nassar Dec 21, 2019 13:02
--- NOTE | 2019-12-21 13:41 | NUR ---
NURSE NOTES: patient was discharged to [facility] where he used to live to [employer] his stuffs and would go to the [facility] that elementary school social worker recommended. a&Ox4, verbally responsive. no respiratory distress noted. no pain at this time. provide bus tab. map. some meals and new clothes. dc packet provided. checked and counted belongings with patient. homeless check list done. obtained sign. removed ID band. assisted patient to the lobby. left safely.
--- NOTE | 2019-12-23 18:19 | Discharge Summary ---
Discharge Summary Discharge Summary _ DATE OF ADMISSION: 12/19/2019 DATE OF DISCHARGE: 12/21/2019 DISCHARGED BY: Dr. Alex Villasenor CONSULTANTS: Dr. Ab Nassar BRIEF HOSPITAL COURSE: Patient is a 29-year-old male, who presented to ED due to increased rectal discomfort. He stated he was under the influence of "dope" and inserted an object in his rectum. It has been there for the past 2 days. He denied any vomiting. He reported increased pain with movement. He denies fever. Denies abdominal distention. He was having flatus. He denied any past medical history. He was brought in by EMS. He had increased difficulty with ambulation due to discomfort. He described the object to be an ornament. Upon evaluation at ED, blood pressure was stable, heart rate was tachycardic. Blood work was unremarkable. KUB showed radiopaque foreign body, near the pubic rami. CT of the hip showed foreign body within the rectum. He was then admitted for surgical evaluation and removal of foreign object. He was placed in n.p.o. He was given IV fluids. He underwent surgical evaluation. Urine toxicology was positive for opiates, amphetamine, benzodiazepine and THC. On 12/20/2019, he underwent rigid sigmoidoscopy with removal of rectal foreign body under anesthesia. Intraoperatively, foreign body was evaluated and noted to be metallic. Object was grasped and slowly withdrawn. Object was intact. First day postop, patient was stable. Symptoms improved. He was seen by social work professor for discharge planning. Patient was cleared for discharge. FINAL DIAGNOSES: Foreign body in the rectum status post removal Multiple drug abuse Homelessness DISPOSITION: The treating physician has assessed that the patient is medically stable for discharge to an outstretched disposition. DISCHARGE INSTRUCTIONS: Follow-up with PCP in a week. I have been assigned to complete a discharge summary on this account, I was not involved with the patient's management.--JO Titus Jacqueline Robles NP Dec 23, 2019 18:19
== END 2019-12-21 13:40 | disposition home or self-care (01) | DRG 254 ==
LOC: EDBD 22:35 → EMR 22:51 → OBSVTOIN 23:30 → 3E 23:30 → EDBEDREQ 12-20 01:08
PROC: 0DCP7ZZ Extirpation of Matter from Rectum, Via Natural or Artificial Opening (ICD-10-PCS; principal; 2019-12-19)
PROC: 0DJD8ZZ Inspection of Lower Intestinal Tract, Via Natural or Artificial Opening Endoscopic (ICD-10-PCS; principal; 2019-12-19)
PROC: 0DJD7ZZ Inspection of Lower Intestinal Tract, Via Natural or Artificial Opening (ICD-10-PCS; principal; 2019-12-19)
DX: T18.5XXA Foreign body in anus and rectum, initial encounter (principal); X58.XXXA Exposure to other specified factors, initial encounter; Y99.8 Other external cause status; F15.10 Other stimulant abuse, uncomplicated; F11.10 Opioid abuse, uncomplicated; F12.10 Cannabis abuse, uncomplicated; F13.10 Sedative, hypnotic or anxiolytic abuse, uncomplicated; F17.200 Nicotine dependence, unspecified, uncomplicated; Z59.0 Homelessness; Z88.2 Allergy status to sulfonamides
CPT/HCPCS: 36415; 74018; 74177; 80053; 80307; 85025; 85610; 85730; 87081; 94003; 94150; 96360; 96361; 96374; 96375; 99284; J2405; J7030